=== PATIENT | female | born 1965 | race Caucasian/White ===

== ENCOUNTER 2018-12-31 08:24 | Outpatient (CLI) | payer MEDICARE ==
--- NOTE | 2018-12-31 09:59 | MRI ---
MR CERVICAL SPINE WITHOUT CONTRAST INDICATION: Chronic neck pain with burning and pinching sensation involving the right shoulder for 4 to 5 years TECHNIQUE: Multiplanar multisequence MR images were obtained of the cervical spine without contrast. COMPARISON: Radiographs of the cervical spine dated December 31, 2018 FINDINGS: Posterior fossa: Within normal limits. Bone marrow signal intensity: Normal Spinal alignment: There is some straightening of the normal cervical lordosis. Craniocervical junction: Normal appearing. Prevertebral and perivertebral soft tissues: Visualized soft tissues appear within normal limits. Vertebral levels: C2-C3: No appreciable central canal or neuroforaminal narrowing. C3-4: No appreciable central canal or neuroforaminal narrowing. C4-5: No appreciable central canal or neuroforaminal narrowing. C5-C6: No appreciable central canal or neuroforaminal narrowing. C6-C7:, No appreciable central canal or neuroforaminal narrowing. C7-T1: No appreciable central canal or neuroforaminal narrowing. IMPRESSION: 1. No appreciable central canal or neuroforaminal narrowing.
--- NOTE | 2018-12-31 10:00 | RAD ---
CERVICAL SPINE SERIES WITH FLEXION AND EXTENSION: Date: 12/31/18 HISTORY: Chronic neck pain, burning, pinching down right shoulder. FINDINGS: The vertebral bodies are normal in height. Disc space height appears fairly well preserved. No abnorm al seen on flexion or extension views. IMPRESSION: Unremarkable flexion and extension views. POS: [facility]
== END 2018-12-31 08:25 | disposition home or self-care (01) ==
LOC: SCSMRI 08:24
PROVIDERS: ATTEND Physician Assistant Surgical
DX: M54.12 Radiculopathy, cervical region (principal)
CPT/HCPCS: 72040; 72141

== ENCOUNTER 2019-09-20 09:44 | Outpatient (CLI) | payer MEDICARE ==
--- NOTE | 2019-10-05 15:25 | MMO ---
Bilateral MAMMO Bilat Screen [facility]. CLINICAL HISTORY: Patient is 53 years old and is seen for screening. The patient has no family history of breast cancer. The patient has no personal history of cancer. VIEWS: The views performed were: bilateral craniocaudal; bilateral craniocaudal with tomosynthesis; bilateral mediolateral oblique; bilateral mediolateral oblique with tomosynthesis; and cleavage view. FILMS COMPARED: The present examination has been compared to a prior imaging study performed at [facility] on 11/27/2016. This study has been interpreted with the assistance of computer-aided detection. MAMMOGRAM FINDINGS: The breasts are almost entirely fat. There are no suspicious masses, suspicious calcifications, or new areas of architectural distortion. IMPRESSION: THERE IS NO MAMMOGRAPHIC EVIDENCE OF MALIGNANCY. A ROUTINE FOLLOW-UP MAMMOGRAM IN 1 YEAR IS RECOMMENDED. THE RESULTS OF THIS EXAM WERE SENT TO THE PATIENT. ACR BI-RADS Category 1 - Negative MAMMOGRAPHY NOTE: 1. A negative mammogram report should not delay a biopsy if a dominant of clinically suspicious mass is present. 2. Approximately 10% to 15% of breast cancers are not detected by mammography. 3. Adenosis and dense breasts may obscure an underlying neoplasm. Reported by: VIRGINIA URENA MD Electonically Signed: [id number]
== END 2019-09-20 09:45 | disposition home or self-care (01) ==
LOC: BICMAMMO 09:44
PROVIDERS: ATTEND Family Medicine
DX: Z12.31 Encounter for screening mammogram for malignant neoplasm of breast (principal)
CPT/HCPCS: 77063; 77067